=== PATIENT | female | born 1965 | race Hispanic/Latino ===

== ENCOUNTER 2022-08-16 09:16 | Emergency (ER) | payer OTHER ==
[~2022-08-16] VITALS: Ht 149.9 cm; Wt 77.1 kg
[2022-08-16 09:42] VITALS: O2SAT 100
[2022-08-16] MEDS ORDERED: BACTRIM DS TAB1 EACH PO (09:59)
== END 2022-08-16 10:32 | disposition home or self-care (01) ==
LOC: ER 09:30
DX: L03.031 Cellulitis of right toe (principal); I10 Essential (primary) hypertension; E11.9 Type 2 diabetes mellitus without complications; Z85.3 Personal history of malignant neoplasm of breast
CPT/HCPCS: 99283